=== PATIENT | female | born 1955 | race Two or more races ===

== ENCOUNTER → 2020-09-02 | Outpatient (CLI) | payer MEDICARE, MEDICAID ==
[~2020-09-02] MED LIST: ASPI-1497 PO; BUSP10TA3 PO; DICY20TA11 PO; FERR325T6 PO; GABA-532 PO; MELO-106 PO; NVLG73 SUBCUT; PANT40TA51 PO; SERT-112 PO; SIMV10TA97 PO; TOPUD PO
== END | disposition home or self-care (01) ==
LOC: LAB 08:47
PROVIDERS: ATTEND Internal Medicine Gastroenterology
DX: Z01.812 Encounter for preprocedural laboratory examination (principal); Z20.822 Contact with and (suspected) exposure to COVID-19
CPT/HCPCS: 87426

== ENCOUNTER → 2020-09-02 | Day surgery (SDC) | payer MEDICARE, MEDICAID ==
[~2020-09-02] VITALS: Ht 152.4 cm; Wt 90.7 kg
[~2020-09-02] MED LIST changes: +ACETAMINOPHEN 500MG TABLET PO SCH; +LIDOCAINE HCL/PF 1% 10 MG/ML 5ML VIAL ONE; +PROPOFOL 200MG/20ML VIAL IV ONE; +SODIUM CHLORIDE 0.9% 1,000 ML IV SCH
[2020-09-02 10:19] LABS: BASOPHILS % 0.9 % (0.0-2.0); EOSINOPHILS % 0.6 % (0.0-5.0); HEMATOCRIT. 39.4 % (36.0-48.0); HEMOGLOBIN. 12.7 g/dL (12.0-16.0); LYMPHOCYTES % 17.9 % (20.0-50.0); MEAN CORPUSCULAR VOLUME 83.4 fL (81.0-99.0); MEAN PLATELET VOLUME 8.1 fl (7.4-10.4); MONOCYTES % 5.3 % (2.0-8.0); NEUTROPHILS % 75.3 % (40.0-76.0); PLATELET 279 x1000/uL (130-400); RED BLOOD CELL COUNT 4.73 mill/uL (4.2-5.4); RED CELL DISTRIBUTION WIDTH 14.4 % (11.6-14.6)
[2020-09-02 10:28] LABS: CHLORIDE 104 mEq/L (98-107)
== END | disposition home or self-care (01) ==
LOC: OR 09:38
PROVIDERS: ATTEND Internal Medicine Gastroenterology
DX: R10.9 Unspecified abdominal pain (principal); K57.30 Diverticulosis of large intestine without perforation or abscess without bleeding; K64.8 Other hemorrhoids; K63.89 Other specified diseases of intestine; G89.29 Other chronic pain; E11.9 Type 2 diabetes mellitus without complications; M81.0 Age-related osteoporosis without current pathological fracture; M19.90 Unspecified osteoarthritis, unspecified site; Z79.84 Long term (current) use of oral hypoglycemic drugs; Z79.899 Other long term (current) drug therapy; Z98.890 Other specified postprocedural states
CPT/HCPCS: 36415; 45380; 80048; 82962; 85025; 88305; 93005; J2704; J3490